=== PATIENT | female | born 1990 | race Caucasian/White ===

== ENCOUNTER 2016-06-09 11:07 | Emergency (ER) | payer BC ==
[~2016-06-09] VITALS: Ht 162.6 cm; Wt 68.0 kg
[2016-06-09 12:54] LABS: BASOPHILS % (AUTO) 1 % (0-2); EOSINOPHILS # (AUTO) 0.2 10^3uL; EOSINOPHILS % (AUTO) 2 % (0-4); LYMPHOCYTES # (AUTO) 4.1 X10^3; MEAN CORPUSCULAR HEMOGLOBIN 31.3 PG (26.0-34.0); MEAN CORPUSCULAR HGB CONC 35.2 g/dL (31.0-37.0); MEAN CORPUSCULAR VOLUME 89 FL (80-100); MEAN PLATELET VOLUME 10.2 FL (6.0-9.5); MONOCYTES # (AUTO) 1.1 X10^3; MONOCYTES % (AUTO) 11 % (3-11); NEUTROPHILS # (AUTO) 4.1 X10^3; NEUTROPHILS % (AUTO) 43 % (51-67); PLATELET COUNT 305 10^3uL (150-450); WHITE BLOOD COUNT 9.47 10^3uL (4.0-11.0)
[2016-06-09 12:58] LABS: BILIRUBIN,URINE Negative (Negative); GLUCOSE, URINE (UA) Negative (Negative); LEUKOCYTE ESTERASE ,URINE Negative (Negative); UROBILINOGEN,URINE 0.2 mg/dL (0.2-1.0)
[2016-06-09 12:59] LABS: CLARITY,URINE Slightly Cloudy; COLOR,URINE Dark Yellow; URINE CENTRIFUGED VOLUME 12 mL
[2016-06-09 13:04] LABS: RBC,URINE TNTC /HPF
[2016-06-09 13:05] LABS: ALBUMIN 4.3 g/dL (3.4-5.0); ANION GAP 14.2 MEQ/L (3-15); TOTAL PROTEIN 7.1 g/dL (6.4-8.5)
[2016-06-09 22:02] VITALS: BP 108/63
== END 2016-06-09 15:23 | disposition home or self-care (01) ==
LOC: ED 11:09
DX: O46.91 Antepartum hemorrhage, unspecified, first trimester (principal); Z3A.01 Less than 8 weeks gestation of pregnancy; N96 Recurrent pregnancy loss
CPT/HCPCS: 36415; 80053; 81003; 81015; 84702; 85025; 99282; 99283

== ENCOUNTER 2016-06-11 22:09 | Emergency (ER) | payer BC ==
[~2016-06-11] VITALS: Ht 162.6 cm; Wt 65.8 kg
[2016-06-11 23:07] LABS: BASOPHILS % (AUTO) 1 % (0-2); EOSINOPHILS # (AUTO) 0.1 10^3uL; EOSINOPHILS % (AUTO) 2 % (0-4); LYMPHOCYTES # (AUTO) 2.9 X10^3; MEAN CORPUSCULAR HGB CONC 35.3 g/dL (31.0-37.0); MEAN CORPUSCULAR VOLUME 89 FL (80-100); MONOCYTES # (AUTO) 0.8 X10^3; MONOCYTES % (AUTO) 10 % (3-11); NEUTROPHILS # (AUTO) 4.2 X10^3; NEUTROPHILS % (AUTO) 52 % (51-67); PLATELET COUNT 269 10^3uL (150-450); WHITE BLOOD COUNT 8.13 10^3uL (4.0-11.0)
[2016-06-11 23:14] LABS: MEAN CORPUSCULAR HEMOGLOBIN 31.4 PG (26.0-34.0)
--- NOTE | 2016-06-11 23:49 | NUR ---
DR HORAN CONFIRING WITH DR ABY FUNG IN [facility] BLEEDING
[2016-06-12 00:11] VITALS: BP 108/77
== END 2016-06-12 00:12 | disposition home or self-care (01) ==
LOC: ED 22:12
DX: O20.9 Hemorrhage in early pregnancy, unspecified (principal); Z3A.01 Less than 8 weeks gestation of pregnancy; F17.200 Nicotine dependence, unspecified, uncomplicated
CPT/HCPCS: 36415; 84702; 85025; 99283

== ENCOUNTER 2016-07-18 16:01 | Emergency (ER) | payer BC ==
[~2016-07-18] VITALS: Ht 162.6 cm; Wt 70.0 kg
[~2016-07-18 16:01] MED LIST: ASP81CT PO; NF-TORA10 PO; ONDAN4ODT PO; PREN-98 PO
--- NOTE | 2016-07-18 16:48 | NUR ---
water given to pt
--- NOTE | 2016-07-18 17:29 | Diagnostic Imaging Report ---
PROCEDURE: US OB SINGLE FETUS <14 WKS. TECHNIQUE: Multiple real-time grayscale images were obtained over the gravid uterus in various projections. INDICATION: A 25-year-old female presents with vaginal bleeding. COMPARISONS: 03/30/2016. FINDINGS: The uterus shows homogeneous echotexture with normal position. There is a gestational sac with a double deciduous sign. Within the sac is a pole with crown-rump length of 42.7 mm which corresponds to an average ultrasound gestational age of 11 weeks and 1 day. There is positive cardiac activity with a rate of 150 beats per minute. No perigestational sac fluid collection is seen. There is normal flow seen by color Doppler. The right ovary is removed. Left ovary appears normal in size and shows normal flow by color Doppler. IMPRESSION: Single live IUP with an average ultrasound gestational age of 11 weeks and 1 day. No perigestational sac fluid collection is seen with no gross abnormalities identified at this time. Dictated by: Dictated on workstation # [id number]
[2016-07-18 17:50] VITALS: BP 133/76
== END 2016-07-18 17:58 | disposition home or self-care (01) ==
LOC: ED 16:02
DX: O26.891 Other specified pregnancy related conditions, first trimester (principal); Z3A.11 11 weeks gestation of pregnancy
CPT/HCPCS: 76801; 99282